=== PATIENT | female | born 1980 | race Two or more races ===

== ENCOUNTER 2018-08-09 02:23 | Inpatient (IN) | payer MEDICAID ==
[~2018-08-09] VITALS: Ht 162.6 cm; Wt 82.0 kg
[2018-08-09 02:49] VITALS: BP 133/82
[2018-08-09 03:33] VITALS: BP 133/82
[2018-08-09] MEDS ORDERED: OXYTOCIN 30U/ 0.9% NaCL 500ML 500 ML IV ONE (03:44)
[2018-08-09] MEDS ORDERED: D5%-LACTATED RINGERS 1,000 ML IV SCH (03:44)
[2018-08-09] MEDS ORDERED: OXYTOCIN 30U/ 0.9% NaCL 500ML 500 ML IV PRN (03:44)
[2018-08-09] MEDS ORDERED: AMPICILLIN 2 GM in SODIUM CHLORIDE 0.9% 100 ML IVPB STA (03:44)
[2018-08-09] MEDS ORDERED: FENTANYL/BUPIV./NS/PF 250 ML EPIDCONT SCH ×2 (03:48→15:41)
[2018-08-09] MEDS ORDERED: OXYTOCIN 30U/ 0.9% NaCL 500ML 500 ML ONE (03:50)
[2018-08-09] MEDS ORDERED: LIDOCAINE/PF 1%, 30ML ONE (03:50)
[2018-08-09] MEDS ORDERED: CLINDAMYCIN PMX 900MG/50ML 50 ML ONE ×2 (03:54→19:50)
[2018-08-09] MEDS ORDERED: TERBUTALINE 1 MG/ML, 1ML SQ PRN (04:00)
[2018-08-09] MEDS ORDERED: ALUMINUM/MAG/SIMETHICONE 30 ML UDC PO PRN (04:00)
[2018-08-09] MEDS ORDERED: SODIUM CHLORIDE FLUSH 10ML SYR IVF PRN (04:00)
[2018-08-09] MEDS ORDERED: CALCIUM CARBONATE 500 MG TAB.CHEW PO PRN (04:00)
[2018-08-09] MEDS ORDERED: PLEASE ENTER ALLERGIES MC SCH (04:00)
[2018-08-09] MEDS ORDERED: METOCLOPRAMIDE 5 MG/ML, 2ML IVPush PRN (04:00)
[2018-08-09] MEDS ORDERED: FENTANYL PF 100 MCG/2ML IV PRN (04:00)
[2018-08-09] MEDS ORDERED: SODIUM CITRATE/CITRIC ACID 30 ML UDC PO PRN (04:00)
[2018-08-09] MEDS ORDERED: AMPICILLIN 1 GM in SODIUM CHLORIDE 0.9% 100 ML IVPB SCH (04:00)
[2018-08-09] MEDS ORDERED: FENTANYL PF 100 MCG/2ML IVPush PRN (04:00)
[2018-08-09] MEDS ORDERED: TERBUTALINE 1 MG/ML, 1ML IVPush PRN ×2 (04:00)
[2018-08-09] MEDS: CLINDAMYCIN PMX 900MG/50ML 50 ML IVPB SCH ×3 (04:00→19:52)
[2018-08-09] MEDS ORDERED: ONDANSETRON 2MG/ML, 2ML IVPush PRN ×2 (04:00→16:00)
[2018-08-09] MEDS: LACTATED RINGERS 1,000 ML IV SCH ×3 (04:16→08:42)
[2018-08-09 04:21] LABS: BASOPHILS # (AUTO) 0.02 x10^3/uL (0-0.1); BASOPHILS % (AUTO) 0 % (0-1); EOSINOPHILS # (AUTO) 0.05 x10^3/uL (0-0.4); EOSINOPHILS % (AUTO) 1 % (1-7); LYMPHOCYTES # (AUTO) 1.27 x10^3/uL (1-3.4); LYMPHOCYTES % (AUTO) 20 % (22-44); MD NO; MEAN CORPUSCULAR HEMOGLOBIN 29.3 pg (27.0-34.8); MEAN CORPUSCULAR HGB CONC 34.4 g/dL (32.4-35.8); MEAN CORPUSCULAR VOLUME 85.3 fL (80-100); MEAN PLATELET VOLUME 10.6 fL (7.4-10.4); MONOCYTES # (AUTO) 0.52 x10^3/uL (0.2-0.8); MONOCYTES % (AUTO) 8 % (2-9); NEUTROPHILS # (AUTO) 4.54 x10^3/uL (1.8-6.8); NEUTROPHILS % (AUTO) 71 % (42-75); PLATELET COUNT 165 x10^3/uL (130-400); RED CELL DISTRIBUTION WIDTH 14.8 % (9.6-15.2)
[2018-08-09] MEDS ORDERED: FENTANYL PF 100 MCG/2ML ONE (05:54)
[2018-08-09 09:50] LABS: AMPHETAMINE SCREEN, URINE Negative (Negative); BARBITURATE SCREEN, URINE Negative (Negative); BENZODIAZEPINE SCREEN, URINE Negative (Negative); CANNABINOID SCREEN, URINE Negative (Negative); COCAINE SCREEN, URINE Negative (Negative); METHADONE SCREEN, URINE Negative (Negative); OPIATE SCREEN, URINE Negative (Negative)
[2018-08-09] MEDS ORDERED: LACTATED RINGERS 1,000 ML IV SCH (15:41)
[2018-08-09] MEDS ORDERED: NALOXONE 0.4 MG/ML, 1ML IVPush PRN (16:00)
[2018-08-09] MEDS ORDERED: EPHEDRINE 50 MG/ML, 1ML IVPush PRN (16:00)
[2018-08-09] MEDS ORDERED: DIPHENHYDRAMINE 50 MG/ML, 1ML IVPush PRN (16:00)
[2018-08-09] MEDS ORDERED: LACTATED RINGERS 1,000 ML IVBOLUS PRN (16:00)
[2018-08-09] MEDS ORDERED: MISOPROSTOL 200 MCG TABLET PR PRN (22:00)
[2018-08-09] MEDS ORDERED: ONDANSETRON 2MG/ML, 2ML IV PRN (22:00)
[2018-08-09] MEDS ORDERED: OXYcodone/APAP 5/325MG TABLET PO PRN ×2 (22:00)
[2018-08-09] MEDS ORDERED: FENTANYL PF 500 MCG, BUPIVACAINE/PF 0.5%, 30ML 62.5 ML in SODIUM CHLORIDE 0.9% 177.5 ML EPIDCONT SCH (22:00)
[2018-08-09] MEDS ORDERED: IBUPROFEN 600 MG TABLET ONE (23:18)
[2018-08-09] MEDS: OXYTOCIN 30U/ 0.9% NaCL 500ML 500 ML IV SCH (23:20)
[2018-08-09] MEDS: IBUPROFEN 600 MG TABLET PO PRN (23:20)
[2018-08-09 23:45] VITALS: BP 105/63
[2018-08-10 00:40] VITALS: BP 109/67
[2018-08-10 03:32] VITALS: BP 92/58
[2018-08-10 04:55] LABS: BASOPHILS # (AUTO) 0.02 x10^3/uL (0-0.1); BASOPHILS % (AUTO) 0 % (0-1); EOSINOPHILS # (AUTO) 0.02 x10^3/uL (0-0.4); EOSINOPHILS % (AUTO) 0 % (1-7); LYMPHOCYTES # (AUTO) 1.12 x10^3/uL (1-3.4); LYMPHOCYTES % (AUTO) 9 % (22-44); MD NO; MEAN CORPUSCULAR HEMOGLOBIN 29.3 pg (27.0-34.8); MEAN CORPUSCULAR HGB CONC 34.1 g/dL (32.4-35.8); MEAN CORPUSCULAR VOLUME 85.8 fL (80-100); MEAN PLATELET VOLUME 10.5 fL (7.4-10.4); MONOCYTES # (AUTO) 0.66 x10^3/uL (0.2-0.8); MONOCYTES % (AUTO) 5 % (2-9); NEUTROPHILS # (AUTO) 10.95 x10^3/uL (1.8-6.8); NEUTROPHILS % (AUTO) 86 % (42-75); PLATELET COUNT 133 x10^3/uL (130-400); RED CELL DISTRIBUTION WIDTH 14.8 % (9.6-15.2)
[2018-08-10] MEDS: OXYTOCIN 30U/ 0.9% NaCL 500ML 500 ML IV SCH ×2 (07:43→17:43)
[2018-08-10] MEDS: DOCUSATE 100 MG CAPSULE PO PRN ×2 (07:50→20:41)
[2018-08-10] MEDS: IBUPROFEN 600 MG TABLET PO PRN ×3 (07:50→20:41)
[2018-08-10] MEDS: PRENATAL VIT/IRON/FA 1 EACH TABLET PO SCH (07:51)
[2018-08-10 08:15] VITALS: BP 105/65
[2018-08-10 14:10] VITALS: BP 109/65
[2018-08-10 14:19] VITALS: BP 103/66
[2018-08-10 20:15] VITALS: BP 109/69
[2018-08-11] MEDS: OXYTOCIN 30U/ 0.9% NaCL 500ML 500 ML IV SCH ×3 (03:43→16:36)
[2018-08-11] MEDS: IBUPROFEN 600 MG TABLET PO PRN ×3 (06:48→22:26)
[2018-08-11] MEDS: DOCUSATE 100 MG CAPSULE PO PRN ×2 (08:19→22:26)
[2018-08-11] MEDS: PRENATAL VIT/IRON/FA 1 EACH TABLET PO SCH (08:19)
[2018-08-11 08:30] VITALS: BP 106/69
[2018-08-11 22:20] VITALS: BP 118/72
== END 2018-08-11 22:45 | disposition home or self-care (01) | DRG 807 ==
LOC: LDOP 02:23 → LDIP 03:50 → 2NW 23:31
PROVIDERS: ADMIT Obstetrics & Gynecology; ATTEND Obstetrics & Gynecology
PROC: 10D07Z6 Extraction of Products of Conception, Vacuum, Via Natural or Artificial Opening (ICD-10-PCS; principal; 2018-08-09)
PROC: 0KQM0ZZ Repair Perineum Muscle, Open Approach (ICD-10-PCS; 2018-08-09)
PROC: 3E033VJ Introduction of Other Hormone into Peripheral Vein, Percutaneous Approach (ICD-10-PCS; 2018-08-09)
PROC: 3E0R3BZ Introduction of Anesthetic Agent into Spinal Canal, Percutaneous Approach (ICD-10-PCS; 2018-08-09)
PROC: 00HU33Z Insertion of Infusion Device into Spinal Canal, Percutaneous Approach (ICD-10-PCS; 2018-08-09)
DX: O77.0 Labor and delivery complicated by meconium in amniotic fluid (principal); Z37.0 Single live birth; E03.9 Hypothyroidism, unspecified; O70.1 Second degree perineal laceration during delivery; O76 Abnormality in fetal heart rate and rhythm complicating labor and delivery; O99.284 Endocrine, nutritional and metabolic diseases complicating childbirth; Z3A.39 39 weeks gestation of pregnancy; Z88.0 Allergy status to penicillin
CPT/HCPCS: 36415; J7121; 76815; 80307; 82803; 84112; 85025; 86850; 86900; 87081; 87147; 87181; 89060; G0378; J3010; J3490; J2590; J7050; J7120; Q0114